=== PATIENT | female | born 1960 | race Caucasian/White ===

== ENCOUNTER 2023-12-01 11:34 | Outpatient (RCR) | payer OTHER, SELFPAY | END 2023-12-01 23:59 | disposition home or self-care (01) | LOC: RPT 11:34 | PROVIDERS: ATTENDING PHYSICIAN Family Medicine | DX: R42 Dizziness and giddiness (principal); H81.11 Benign paroxysmal vertigo, right ear; Z73.6 Limitation of activities due to disability; R51.9 Headache, unspecified | CPT/HCPCS: 97140; 97162 ==

== ENCOUNTER → 2024-01-07 07:17 | Outpatient (REF) | payer OTHER, SELFPAY | LOC: RAD 07:17 | PROVIDERS: ATTENDING PHYSICIAN Family Medicine | DX: E04.1 Nontoxic single thyroid nodule (principal) | CPT/HCPCS: 76536 ==

== ENCOUNTER → 2024-04-21 11:14 | Outpatient (REF) | payer OTHER, SELFPAY | LOC: WDC 11:14 | PROVIDERS: ATTENDING PHYSICIAN Family Medicine | DX: M85.89 Other specified disorders of bone density and structure, multiple sites (principal); Z12.31 Encounter for screening mammogram for malignant neoplasm of breast | CPT/HCPCS: 77080 ==